=== PATIENT | male | born 1985 | race Caucasian/White ===

== ENCOUNTER 2018-07-22 20:48 | Emergency (ER) | payer MEDICARE ==
[2018-07-22] MEDS ORDERED: Zosyn INJ IV ONE (22:01)
[2018-07-22] MEDS ORDERED: D5w 100ML Mini Bag 100 ML 100 ML IV ONE (22:02)
[2018-07-22] MEDS: Zosyn INJ 4.5 GM in D5w 100ML Mini Bag 100 ML 100 ML IV ONE (22:09)
[2018-07-22 22:18] LABS: BASOPHIL % 0.2 % (0.0-0.4); Basophil (Absolute #) 0.02 (0-0.4); Eosinophil % 5.4 % (0.00-5.0); Eosinophil (Absolute #) 0.47 (0-0.5); Granulocyte Absolute (ANC) 5.24 (1.4-6.9); Granulocytes % 60.2 % (36.0-66.0); Hematocrit 43.1 % (42-50); Hemoglobin 14.2 gm/dl (12.5-18.0); Lymphocyte (Absolute #) 2.46 (1.0-4.6); Lymphocytes % 28.2 % (24.0-44.0); Mean Cell Volume 86.4 fl (78-100); Mean Corpuscular Hemoglobin 28.5 pg (26-32); Mean Corpuscular Hgb Concent. 32.9 g/dl (32-36); Mean Platelet Volume 11.5 fl (6-9.5); Monocyte (Absolute #) 0.52 (0.0-1.3); Platelet Count 159 K/mm3 (150-450); Red Blood Count 4.99 M/mm3 (4.1-5.6); Red Cell Distribution Width 13.9 % (11.5-14.0); White Blood Count 8.7 K/mm3 (4.0-10.5)
[2018-07-22] MEDS ORDERED: MORPHINE SULFATE 2 MG INJ ONE (22:29)
[2018-07-22 22:31] LABS: ALKALINE PHOSPHATASE 70 U/L (38-126); ANION GAP 11.5 MEQ/L (5-15); BLOOD UREA NITROGEN 8 mg/dL (9-20); CHLORIDE 106 mmol/L (98-107); Calcium 8.9 mg/dL (8.4-10.2); Carbon Dioxide 28 mmol/L (22-30); Creatinine 1 0.91 mg/dL (0.66-1.25); Glucose 87 mg/dL (74-106); Potassium 3.9 mmol/L (3.5-5.1); SGOT/AST 42 U/L (17-59); SGPT/ALT 51 U/L (0-50); SODIUM 141 mmol/L (137-145); Total Protein 7.3 g/dL (6.3-8.2)
[2018-07-22] MEDS: MORPHINE SULFATE 2 MG INJ IM ONE (22:32)
[2018-07-22] MEDS ORDERED: Vancomycin 1GM/ Ns 250ML*** 250 ML IV ONE (22:40)
[2018-07-22] MEDS: Vancomycin 1GM/ Ns 250ML*** 1 GM/250 ML IVPB IV ONE (22:53)
--- NOTE | 2018-07-22 23:25 | ERPHSYRPT ---
- History of Present Illness Source: patient Exam Limitations: no limitations Patient Subjective Stated Complaint: PT STATES HE WAS IN SHOWER WHEN HE HAD SUDDEN ONSET OF ITCHING TO LEFT FOREARM, PT THEN NOTICED AREAD SWELLING AND REDDENED, LATER NOTICING RED STREAKING PROXIMALLY UP ARM. PT C/O INTENSE ITCHING. APPROX [phone] TODAY Triage Nursing Assessment: PINK/WARM/DRY, RESP EASY, A&OX4, STEADY GAIT, SWOLLEN RED AREA TO LEFT FOREARM NOTED WITH RED STREAKING DISTALLY UP LEFT ARM. Physician History: Pt is a 32 y/o male that presented to the ED with bug bite. Pt stated, was in the shower when he felt an itch on his L forearm. Now the area is red and swollen, with a streak going towards the upper arm. Pt denies F/C/S. The area is very itchy, and there is pain with palpation in the indurated area around the bite. No SOB or cough. No chest discomfort. No N/V/D or abdominal pain. Timing/Duration: today Quality: itchy, painful Severity: moderate Location: extremities (L UE) Possible Causes: insect bite Associated Symptoms: swelling/mass/lumps, other (streak going up the arm) Allergies/Adverse Reactions: bee venom protein (honey bee) Allergy (Verified 07/22/18 21:01) Home Medications: Alprazolam 0.5 mg [xanAX 0.5 MG] 0.5 mg PO QID 07/22/18 [History] Zolpidem Tartrate [Ambien] 10 mg PO HS 07/22/18 [History] Hx Tetanus, Diphtheria Vaccination/Date Given: No Hx Influenza Vaccination/Date Given: No Hx Pneumococcal Vaccination/Date Given: No Immunizations Up to Date: No - Review of Systems Constitutional: No Fever, No Chills Eyes: No Symptoms Ears, Nose, & Throat: No Symptoms Respiratory: No Cough, No Dyspnea Cardiac: No Chest Pain, No Edema, No Syncope Abdominal/Gastrointestinal: No Abdominal Pain, No Nausea, No Vomiting, No Diarrhea Musculoskeletal: No Back Pain, No Neck Pain Skin: Cellulitis, Induration, Pruritis Neurological: No Dizziness, No Focal Weakness, No Sensory Changes - Past Medical History Pertinent Past Medical History: Yes Psycho-Social History: Anxiety - Past Surgical History Past Surgical History: Yes Musculoskeletal: Orthopedic Surgery Other Surgical History: ACL REPAIR RT LEG, OSTEOTOMY LEFT LEG - Social History Smoking Status: Current every day smoker Exposure to second hand smoke: Yes Drug Use: none Patient Lives Alone: No - Nursing Vital Signs Nursing Vital Signs: Initial Vital Signs Temperature 98.7 F 07/22/18 21:04 Pulse Rate 80 07/22/18 21:04 Respiratory Rate 16 07/22/18 21:04 Blood Pressure 134/82 07/22/18 21:04 O2 Sat by Pulse Oximetry 95 07/22/18 21:04 Pain Scale Pain Intensity 7 - Physical Exam General Appearance: no apparent distress, alert Eye Exam: PERRL/EOMI, eyes nml inspection Ears, Nose, Throat Exam: normal ENT inspection, pharynx normal, moist mucous membranes Neck Exam: normal inspection, non-tender, supple, full range of motion Respiratory Exam: normal breath sounds, lungs clear, No respiratory distress Cardiovascular Exam: regular rate/rhythm, normal heart sounds Gastrointestinal/Abdomen Exam: soft, mass, No tenderness Skin Exam: other (Area of cellulitis over the forearm with area of bite mid induration. Streak is going up the forearm towards axila.) SpO2: 95 - Course Nursing assessment & vital signs reviewed: Yes Ordered Tests: Active Orders 24 hr Category Date Time Status CBC W DIFF Stat Lab 07/22/18 22:00 Completed CMP Stat Lab 07/22/18 22:00 Completed Medication Summary Discontinued Medications Generic Name Dose Route Start Last Admin Trade Name Freq PRN Reason Stop Dose Admin Piperacillin Sod/Tazobactam 100 mls @ 200 mls/hr 07/22/18 21:42 07/22/18 22: 09 Sod 4.5 gm/ Dextrose IV 07/22/18 22:11 200 mls/hr STAT ONE Administration Vancomycin HCl 1 gm in 250 mls @ 167 mls/hr 07/22/18 21:42 07/22/18 22:53 Vancomycin 1gm/ Ns 250ml IV 07/22/18 23:11 167 mls/hr STAT ONE Administration Dextrose Confirm 07/22/18 22:02 D5w 100ml Mini Bag 100 Ml Administered 07/22/18 22:03 Dose 100 mls @ ud IV .STK-MED ONE Vancomycin HCl Confirm 07/22/18 22:40 Vancomycin 1gm/ Ns 250ml Administered 07/22/18 22:41 Dose 250 mls @ ud IV .STK-MED ONE Morphine Sulfate 2 mg 07/22/18 22:26 07/22/18 22:32 Morphine Sulfate 2 Mg Inj IM 07/22/18 22:27 2 mg STAT ONE Administration Morphine Sulfate Confirm 07/22/18 22:29 Morphine Sulfate 2 Mg Inj Administered 07/22/18 22:30 Dose 2 mg .ROUTE .STK-MED ONE Piperacillin Sod/Tazobactam Sod Confirm 07/22/18 22:01 Zosyn Inj Administered 07/22/18 22:02 Dose 4.5 gm IV .STK-MED ONE Lab/Rad Data: Laboratory Result Diagrams 07/22/18 22:00 07/22/18 22:00 Laboratory Results 07/22/18 07/22/18 Range/Units 22:00 22:00 WBC 8.7 (4.0-10.5) K/mm3 RBC 4.99 (4.1-5.6) M/mm3 Hgb 14.2 (12.5-18.0) gm/dl Hct 43.1 (42-50) % MCV 86.4 (78-100) fl MCH 28.5 (26-32) pg MCHC 32.9 (32-36) g/dl RDW 13.9 (11.5-14.0) % Plt Count 159 (150-450) K/mm3 MPV 11.5 H (6-9.5) fl Gran % 60.2 (36.0-66.0) % Eos # (Auto) 0.47 (0-0.5) Absolute Lymphs (auto) 2.46 (1.0-4.6) Absolute Monos (auto) 0.52 (0.0-1.3) Lymphocytes % 28.2 (24.0-44.0) % Monocytes % 6.0 (0.0-12.0) % Eosinophils % 5.4 H (0.00-5.0) % Basophils % 0.2 (0.0-0.4) % Absolute Granulocytes 5.24 (1.4-6.9) Basophils # 0.02 (0-0.4) Sodium 141 (137-145) mmol/L Potassium 3.9 (3.5-5.1) mmol/L Chloride 106 (98-107) mmol/L Carbon Dioxide 28 (22-30) mmol/L Anion Gap 11.5 (5-15) MEQ/L BUN 8 L (9-20) mg/dL Creatinine 0.91 (0.66-1.25) mg/dL Estimated GFR > 60.0 ML/MIN Glucose 87 (74-106) mg/dL Calcium 8.9 (8.4-10.2) mg/dL Total Bilirubin 1.00 (0.2-1.3) mg/dL AST 42 (17-59) U/L ALT 51 H (0-50) U/L Alkaline Phosphatase 70 (38-126) U/L Serum Total Protein 7.3 (6.3-8.2) g/dL Albumin 4.0 (3.5-5.0) g/dL - Progress Progress: unchanged Progress Note: 07/22/18 23:27 Lab work was negative, but secondary to presentation, pt was treated with Vancomycin and Zosyn. I did want to keep pt in the hospital, for IV ABX, but he refused. I will d/c pt on Augmentin and Clindamycin. I explained to the pt , that if he is not improved, and the swelling and erythema gets worse, he has to come back to the ER. Will see patient in: office Counseled pt/family regarding: need for follow-up - Departure Departure Disposition: Home Clinical Impression: Insect bite of forearm, left Condition: Stable Critical Care Time: No Referrals: DOCTOR,NO FAMILY [Primary Care Provider] - Additional Instructions: If the erythema is not improving, come back to the ER. Prescriptions: Amoxicillin/Potassium Clav [Augmentin 875-125 Tablet] 1 each PO BID #20 tablet Clindamycin HCl 300 mg PO Q8H #30 capsule
[2018-07-22 23:56] VITALS: BP 137/84; PULSE 56; O2SAT 98
[2018-07-23] MEDS ORDERED: ATARAX 25 MG ONE (00:13)
[2018-07-23] MEDS: ATARAX 25 MG PO ONE (00:14)
== END 2018-07-23 00:35 | disposition home or self-care (01) ==
LOC: ED 20:48
DX: S50.862A Insect bite (nonvenomous) of left forearm, initial encounter (principal)
CPT/HCPCS: 36415; 80053; 85025; 96365; 96367; 96374; 96375; 99284; J2270; J2543; J3370; A9270-GY